=== PATIENT | male | born 1950 | race Caucasian/White ===

== ENCOUNTER → 2020-04-05 07:30 | Outpatient (CLI) | payer MEDICARE, BC, SELFPAY ==
--- NOTE | 2020-04-05 | DI.NM.S_ITS ---
PROCEDURE: [place] BONE SCAN WHOLE BODY RADIOPHARMACEUTICAL: 21.2 mCi Tc-99m MDP IV. INDICATIONS: Malignant neoplasm of prostate TECHNIQUE: Delayed whole-body scintigrams were obtained approximately 3-4 hours after intravenous injection of radiotracer. Anterior and posterior views were acquired from vertex to feet. COMPARISON: Outside Film, CT, CT CHEST WITH CONTRAST, 02/10/2020, 9:34. Outside Film, CT, CT ABDOMEN PELVIS WITH CONTRAST, 02/10/2020, 9:34. FINDINGS: There is a small focus of subtle increased uptake in the posterior right 9th rib. No lesions are identified in skull, sternum, clavicles, scapulae, bony pelvis, and visualized shafts of the long bones. There is low level increased uptake in thoracic and lumbar spine with distribution indistinguishable from degenerative disc and facet disease; early metastasis to spine could be obscured by degenerative changes. There are foci of increased periarticular activity involving shoulders, knees and feet, compatible with degenerative/arthritic changes. IMPRESSION: 1. Subtle increased uptake in the right 9th rib is of indeterminate clinical significance. Recommend radiographic correlation and follow-up. 2. Elsewhere, no definitive scintigraphic findings for osseous metastasis. Dictated by: Elissa Banegas M.D. on 04/05/2020 at 12:58 Approved by: Elissa Banegas M.D. on 04/05/2020 at 18:39
== END ==
PROVIDERS: PCP Internal Medicine; Referring Provider Internal Medicine; Visit Provider Urology
DX: C61 Malignant neoplasm of prostate (principal)
CPT/HCPCS: 78306; A9503

== ENCOUNTER → 2020-04-12 09:19 | Outpatient (CLI) | payer MEDICARE, BC, SELFPAY ==
--- NOTE | 2020-04-12 | DI.RAD.S_ITS ---
PROCEDURE: XR RIBS BI 3V INDICATIONS: PROSTATE CANCER TECHNIQUE: 3 views of the left and right ribs were acquired. COMPARISON: [place], [place], [place] BONE SCAN WHOLE BODY, 04/05/2020, 11:02. FINDINGS: Surgical changes and devices: None. Bones and chest wall: No fractures or dislocations. No suspicious bony lesions. Overlying soft tissues appear unremarkable. Lungs and pleura: The visualized lung appears clear. No pleural effusions or pneumothorax are visible. IMPRESSION: No radiographic correlate to recent bone scan findings involving the right 9th posterior rib. If indicated, CT or MRI could be performed for further assessment. Dictated by: Syed Muñoz [facility] Interpreted: Sandrine Pichardo MD on 04/12/2020 at 10:08 Approved by: Sandrine Pichardo MD, PhD on 04/12/2020 at 12:21
== END ==
PROVIDERS: PCP Internal Medicine; Referring Provider Urology; Visit Provider Urology
DX: R94.8 Abnormal results of function studies of other organs and systems (principal); C61 Malignant neoplasm of prostate
CPT/HCPCS: 71110